=== PATIENT | male | born 1970 | race Caucasian/White ===

== ENCOUNTER 2021-12-19 10:53 | Inpatient (IN) | payer BC ==
[~2021-12-19] VITALS: Ht 170.2 cm; Wt 104.5 kg
[2021-12-19] MEDS ORDERED: METOPROLOL 5 MG/5 ML VIAL IV SCH (11:55)
[2021-12-19 12:00] LABS: BASO % 0.6 % (0.0-1.0); EOS # 0.1 10^3/uL (0.0-0.5); EOS % 0.8 % (0.0-3.0); HEMATOCRIT 45.2 % (42.0-52.0); HEMOGLOBIN 15.5 g/dl (13.5-17.5); LYMPH # 1.5 10^3/uL (1.5-5.0); LYMPH % 20.7 % (24.0-44.0); MEAN CORPUSCULAR HEMOGLOBIN 31.1 pg (27.0-33.0); MEAN CORPUSCULAR HGB CONC 34.3 g/dl (32.0-36.5); MEAN CORPUSCULAR VOLUME 90.6 fl (80.0-96.0); MONO # 0.6 10^3/uL (0.0-0.8); MONO % 8.6 % (2.0-8.0); NEUTROPHILS % 68.7 % (36.0-66.0); PLATELET COUNT, AUTOMATED 273 10^3/uL (150-450); RED BLOOD COUNT 4.99 10^6/uL (4.30-6.10); WHITE BLOOD COUNT 7.2 10^3/uL (4.0-10.0)
[2021-12-19] MEDS ORDERED: NS 500 ML IV ONE (12:00)
[2021-12-19] MEDS ORDERED: DIGOXIN INJ 0.5 MG/2 ML AMP (J1160) IV ONE (12:00)
[2021-12-19] MEDS ORDERED: ISOVUE-370 76% 100ML VIAL As Ordered ONE (12:01)
[2021-12-19 12:11] LABS: INR 0.91; PROTHROMBIN TIME 12.7 SECONDS (12.7-14.5)
[2021-12-19 12:12] LABS: PARTIAL THROMBOPLASTIN TIME 28.2 SECONDS (25.9-37.0)
[2021-12-19 12:28] LABS: CK-MB VALUE MASS 7.9 NG/ML (<3.6); MB/CK RELATIVE INDEX 1.49 (< OR =4)
[2021-12-19 12:45] LABS: THYROID STIMULATING HORMONE 2.56 uIU/ML (0.358-3.740)
[2021-12-19 12:46] LABS: FREE T4 0.85 NG/DL (0.76-1.46)
[2021-12-19] MEDS ORDERED: ASPIRIN 325 MG TAB PO ONE (13:25)
[2021-12-19] MEDS ORDERED: ALLE180T33 PO (13:47)
[2021-12-19] MEDS ORDERED: HOME MED LIST COMPLETE! XX SCH (13:50)
[2021-12-19] MEDS ORDERED: ASPIRIN 81 MG CHEW TABLET PO ONE (15:05)
[2021-12-19 15:50] LABS: RSV AMPLIFICATION NEGATIVE (NEGATIVE)
[2021-12-20 06:04] LABS: BASO % 0.5 % (0.0-1.0); EOS # 0.1 10^3/uL (0.0-0.5); EOS % 1.4 % (0.0-3.0); HEMATOCRIT 46.1 % (42.0-52.0); HEMOGLOBIN 15.5 g/dl (13.5-17.5); LYMPH # 1.8 10^3/uL (1.5-5.0); LYMPH % 25.2 % (24.0-44.0); MEAN CORPUSCULAR HEMOGLOBIN 30.8 pg (27.0-33.0); MEAN CORPUSCULAR HGB CONC 33.6 g/dl (32.0-36.5); MEAN CORPUSCULAR VOLUME 91.7 fl (80.0-96.0); MONO # 0.8 10^3/uL (0.0-0.8); MONO % 11.5 % (2.0-8.0); NEUTROPHILS # 4.4 10^3/uL (1.5-8.5); RED BLOOD COUNT 5.03 10^6/uL (4.30-6.10); WHITE BLOOD COUNT 7.3 10^3/uL (4.0-10.0)
[2021-12-20 06:32] LABS: BLOOD UREA NITROGEN 12 MG/DL (7-18); CALCIUM LEVEL 9.2 MG/DL (8.5-10.1); CARBON DIOXIDE LEVEL 29 MEQ/L (21-32); CHLORIDE LEVEL 103 MEQ/L (98-107); CHOLESTEROL LEVEL 272 MG/DL (<200); CHOLESTEROL RISK RATIO 5.333 (<5); CREATININE FOR GFR 0.89 MG/DL (0.70-1.30); GLOMERULAR FILTRATION RATE > 60.0 (>60); GLUCOSE, FASTING 121 MG/DL (70-100); HDL CHOLESTEROL 51 MG/DL (>40); LDL CHOLESTEROL 177 MG/DL (<100); NON-HDL-C 221 MG/DL; POTASSIUM SERUM 4.1 MEQ/L (3.5-5.1); SODIUM LEVEL 138 MEQ/L (136-145); TRIGLYCERIDES LEVEL 221 MG/DL (<150)
[2021-12-20 07:08] LABS: PLATELET COUNT, AUTOMATED 170 10^3/uL (150-450)
[2021-12-20] MEDS ORDERED: ASPIRIN 81MG ENTERIC TABLET PO SCH (09:00)
[2021-12-20] MEDS ORDERED: ASPI-551 PO (10:17)
[2021-12-20] MEDS ORDERED: LIPI20TA PO (10:17)
[2021-12-20] MEDS ORDERED: AMLO25TA PO (11:13)
[2021-12-20 11:15] VITALS: BP 171/78
== END 2021-12-20 12:44 | disposition home or self-care (01) | DRG 201 ==
LOC: M ED 10:53 → M ED INP 14:06
PROVIDERS: ADMIT Internal Medicine Nephrology; ATTEND Internal Medicine Nephrology
DX: I48.91 Unspecified atrial fibrillation (principal); I10 Essential (primary) hypertension; J30.2 Other seasonal allergic rhinitis; R20.0 Anesthesia of skin; E78.5 Hyperlipidemia, unspecified; Z90.49 Acquired absence of other specified parts of digestive tract; Z79.82 Long term (current) use of aspirin; Z79.899 Other long term (current) drug therapy

== ENCOUNTER → 2022-10-09 | Outpatient (REF) | payer BC ==
[~2022-10-09] MED LIST: ALLE180T33 PO; AMLO25TA PO; ASPI-551 PO; LIPI20TA PO
[2022-10-10 15:08] LABS: TESTOSTERONE FREE (DIRECT) 12.4 pg/mL (7.2-24.0)
== END ==
LOC: M LAB REF 12:13
PROVIDERS: ATTEND Internal Medicine
DX: N52.9 Male erectile dysfunction, unspecified (principal)

== ENCOUNTER 2024-01-29 10:28 | Day surgery (SDC) | payer BC ==
[~2024-01-29] VITALS: Ht 170.2 cm; Wt 104.6 kg
[~2024-01-29 10:28] MED LIST changes: +AMLO1TAB24 PO
[2024-01-29] MEDS: NS 1,000 ML IV ONE (10:59)
[2024-01-29] MEDS ORDERED: LIDOCAINE 2% 100MG/5ML SDV (FOR ANES.) As Ordered ONE (11:06)
[2024-01-29] MEDS ORDERED: propofoL 200 MG/20 ML VIAL As Ordered ONE (11:06)
[2024-01-29 12:13] VITALS: TEMP 98.5
[2024-01-29 12:29] VITALS: BP 143/70; O2SAT 95
== END 2024-01-29 12:38 | disposition home or self-care (01) ==
LOC: M OPP 10:28
PROVIDERS: ATTEND Surgery
DX: Z12.11 Encounter for screening for malignant neoplasm of colon (principal); I10 Essential (primary) hypertension; Z79.899 Other long term (current) drug therapy

== ENCOUNTER → 2024-10-12 | Outpatient (REF) | payer BC ==
[2024-10-12 13:27] LABS: PERCENT SATURATION 45.5 % (19.7-50.0)
[2024-10-12 13:28] LABS: FERRITIN 308.7 NG/ML (10.5-307.3)
== END ==
LOC: M LAB REF 12:21
PROVIDERS: ATTEND Internal Medicine
DX: N52.9 Male erectile dysfunction, unspecified (principal); D68.69 Other thrombophilia